=== PATIENT | female | born 1995 | race Caucasian/White ===

== ENCOUNTER 2019-06-23 09:01 | Day surgery (SDC) | payer OTHER ==
[2019-06-23] VITALS (9 sets, daily range): BP systolic 85–108; BP diastolic 57–87; PULSE 53–80; TEMP 97.2–97.5
[~2019-06-23] VITALS: Ht 165.1 cm; Wt 73.3 kg
[2019-06-23] MEDS ORDERED: CONCERTA54 MG PO (09:18)
--- NOTE | 2019-06-23 10:30 | NUR ---
Pt arrives back from Endo procedure. Pt drowsy but answers all questions appropriately. Pt ambulates from cart to recliner with RN assist. Monitors on and alarms set. Call light within reach. No family available currently. Report received from QUIANA Carter. Patient has no complaints of pain or nausea and desires to rest. Pt denies interest in food or drink at this time.
--- NOTE | 2019-06-23 10:45 | NUR ---
Pt continues to rest. No complaints voiced.
--- NOTE | 2019-06-23 11:00 | NUR ---
Pt remains resting.
--- NOTE | 2019-06-23 11:15 | NUR ---
Pt resting and answers all questions appropriately. Readily returns to sleep when wakened. No complaints voiced.
[2019-06-23] MEDS ORDERED: PROTONIX 40MG T40 MG PO (11:17)
--- NOTE | 2019-06-23 11:30 | NUR ---
Pt's arrives and brought to room. Pt remains resting.
--- NOTE | 2019-06-23 11:45 | NUR ---
Pt remains sleepy from medicine.
--- NOTE | 2019-06-23 12:00 | NUR ---
Pt stable and remains drowsy. remains in room.
--- NOTE | 2019-06-23 12:05 | NUR ---
Dr. Tate in to visit with patient regarding procedure.
--- NOTE | 2019-06-23 12:25 | NUR ---
Discharge instructions were reviewed with the patient and her at this time. They both verbalized understanding and have no questions for the nurse at this time. The patient's IV was removed and a pressure dressing was applied to the site. The patient is dressed and ready to be escorted out.
--- NOTE | 2019-06-23 12:29 | NUR ---
The patient was escorted out via wheelchair to a private vehicle by QUIANA Pickett. The patient's belonings and discharge paperwork were sent with her. The patient's is present to drive her home.
== END 2019-06-23 12:29 | disposition home or self-care (01) ==
LOC: SDCO 09:01
DX: D13.0 Benign neoplasm of esophagus (principal); K21.9 Gastro-esophageal reflux disease without esophagitis; Z79.82 Long term (current) use of aspirin; D64.9 Anemia, unspecified; K59.00 Constipation, unspecified; Z83.79 Family history of other diseases of the digestive system
CPT/HCPCS: J1200; J2250; J3010; J7030